=== PATIENT | female | born 1955 | race Caucasian/White ===

== ENCOUNTER → 2021-06-08 | Day surgery (SDC) | payer OTHER ==
[~2021-06-08] VITALS: Ht 167.6 cm; Wt 90.7 kg
[~2021-06-08] MED LIST: ACETAMINOPHEN500 M1 PO; ASCORBIC ACID500 MG PO; ASPIR 8181 MG PO; ASPIRIN EC81 MG PO; BLACK ELDERBER1 EACH PO; ENDOCET 5-3251 EACH PO; GLUCOSAMINE-CH1 EA14 PO; MAG-OXIDE 400M400 MG PO; MOTRIN600 MG PO; PERCOCET 5-3251 EACH PO; PRILOSEC20 MG PO; PROGESTERO50 MG/1 M1 PO; PROZAC20 MG PO; STRESS FORMULA1 EACH PO; TURMERIC500 M1 PO; VITAMIN B-121000 MC1 PO; VITAMIN D310 MC3 PO; ZINC30 MG PO
[2021-06-08 07:47] LABS: HGB 13.6 g/dl (12.5-16.0); MCH 31.1 pg (25.0-31.0); MCHC 33.2 g/dL (32.0-36.0); MCV 93.6 fL (78.0-100.0); MPV 10.3 fL (6.0-9.5); RBC 4.38 M/uL (4.20-5.40); RDW 12.7 % (11.5-14.0); WBC 7.6 K/uL (4.0-10.5)
== END | disposition home or self-care (01) ==
LOC: FAS 06:30
PROVIDERS: Specialist
DX: R93.89 Abnormal findings on diagnostic imaging of other specified body structures (principal); N95.0 Postmenopausal bleeding
CPT/HCPCS: 36415; J0690; J1100; J1885; J2250; J2405; J2704; J3010; J7120